=== PATIENT | male | born 1945 | race African-American/Black ===

== ENCOUNTER 2024-02-01 13:20 | Observation (INO) | payer OTHER, SELFPAY ==
[2024-02-01] VITALS (8 sets, daily range): BP systolic 113–142; BP diastolic 70–89; BMI 21.9
--- NOTE | 2024-02-01 09:08 | ED.GENMED ---
History of Present Illness
General
Chief Complaint: Dizziness
Source: patient and family (Son)
Exam Limitations: none
Time Seen by Provider: 02/01/24 08:52
Nursing documentation reviewed up to this point in time: agreed with
Travel History
Have you had any contact with someone who has COVID-19?: No
Do you have any symptoms of coronavirus? Fever > 100 degrees, chills, cough, shortness of breath, sore throat, loss of taste or smell, muscle aches, or headache?: No
History of Present Illness
History of Present Illness:
78-year-old male with a past medical history of hypertension, hyperlipidemia, GERD who presents to the emergency room with his son for evaluation of dizziness, nausea, vomiting; also requesting evaluation after a fall that resulted from his
dizziness yesterday. Patient reports onset of symptoms rather abruptly at around 12 PM yesterday while he was cooking in the kitchen. He says he began to feel a dizzy feeling�he describes room spinning sensation. He says that he thought that he
should sit down but unfortunately lost his balance and fell backwards onto his bottom and hit the back of his head on the ground. He says he did not lose consciousness was able to get up on his own. He says that he went to lay down but did not
feel any better and has had consistent dizziness since then. This morning he woke up and had nausea and some vomiting. He has noticed a discomfort in the epigastric region�he describes this as 'pain from my hiatal hernia.' He says he had some
loose stools this morning. He denies any headache. Denies any neck pain. Denies any back pain. He denies any pain in his extremities. Denies any shortness of breath. He denies having had similar symptoms in the past. He is not on blood
thinners.
Review of Systems
Review of Systems
All Other Systems: ROS reviewed and negative except as documented in HPI and ROS
Constitutional: Reports fatigue; Denies fever or chills
Respiratory: Denies cough or trouble breathing
Cardiac: Denies chest pain or palpitations
ABD/GI: Reports abdominal pain, nausea, vomiting and diarrhea
: Denies flank pain
Musculoskeletal: Denies neck pain or back pain
Neurological: Reports dizzy; Denies headache, weakness or numbness
Phy Exam
Physical Exam
Physical Exam:
General: Awake, alert, oriented x3; no acute distress
Head: Normocephalic, minor occipital scalp hematoma
Eyes: Conjunctiva normal, EOMI without nystagmus, pupils equal round and reactive to light bilaterally
Throat: Airway intact, handling secretions
Neck: Trachea midline, no cervical spine tenderness
Back: No signs of trauma to the back or flank, no tenderness of the thoracic or lumbar spine
Lungs: Clear to auscultation bilaterally, no wheezing, rales, rhonchi
Heart: Regular rate and rhythm, no murmurs, gallops, or rubs
Abd: Soft, non distended, nontender with no palpable masses
Neuro: Cranial nerves intact 2 through 12, speech fluent no dysarthria or aphasia, no limb ataxia, motor and sensory function is intact and symmetric upper and lower extremities
Skin: no rash, no lacerations or abrasions
Extremities: Atraumatic, no edema in extremities, equal pulses in all extremities
Scores
Heart Failure Risk
Heart Failure Risk Score: Not Applicable
Heart Score for Chest Pain Patients
STEMI patient?: Not applicable
Withdrawal Assessment of Alcohol
Withdrawal Assessment Completed?: Not applicable
Course
Orders/Labs/Results
Orders:
Orders
02/01/24 08:53
CT Cervical Spine W/o Iv Contr Urgent
Comment:
Reason For Exam: fall with occipital headstrike, N/V and dizziness
CT Head W/o Iv Contrast Urgent
Comment:
Reason For Exam: fall with occipital headstrike, N/V and dizziness
02/01/24 08:54
Electrocardiogram (*1) Urgent
Reason for Study: Vertigo / Dizzy
EKG- Treatment ONCE
02/01/24 09:16
Complete Blood Count/With Diff Urgent
Comprehensive Metabolic Panel Urgent
02/01/24 09:58
Add On- LAB Urgent
Tests Added?: troponin
02/01/24 10:01
Troponin I Urgent
Comment: PLEASE DRAW, CANNOT ADD ON
02/01/24 10:17
CR Chest - 2 Views Urgent
Comment:
Reason For Exam: epigastric pain
02/01/24 10:18
NEUROLOGY CONSULT Urgent
Consulting Provider: Tye Chin
Was physician already notified: Yes
Abnormal Lab Results
02/01/24
09:16
MCV 79.1 L fL
(80.0-94.0)
RDW 14.7 H %
(11.5-14.5)
Plt Count 436 H 10^3/uL
(130-400)
Absolute Neuts (auto) 7.0 H 10^3/uL
(1.4-6.5)
Lymphocytes % 18.9 L %
(20.5-51.1)
Sodium 134 L mmol/L
(135-145)
Glucose 116 H mg/dl
(70-99)
Alkaline Phosphatase 158 H U/L
(38-126)
02/01/24 09:16
02/01/24 09:16
Vital Signs
Initial and Last Documented VS:
Initial Vital Signs
Temp Pulse Resp BP Pulse Ox
36.5 C 80 20 131/80 99
02/01/24 08:28 02/01/24 08:28 02/01/24 08:28 02/01/24 08:28 02/01/24 08:28
Last Documented Vital Signs
Temp Pulse Resp BP Pulse Ox
36.5 C 74 16 138/79 98
02/01/24 08:28 02/01/24 09:36 02/01/24 09:36 02/01/24 09:36 02/01/24 09:36
MDM/Problems Addressed
Differential Diagnosis Includes:
Dizziness: Describes what sounds like vertigo�differential would include BPPV, stroke, brain mass, hemorrhage; dizziness could also be related to anemia, dysrhythmia, electrolyte derangement, dehydration
Nausea/vomiting/diarrhea/epigastric discomfort: Gastritis, enteritis, pancreatitis, anginal equivalent somewhat less likely
MDM/Problems Addressed:
78-year-old male presents to the emergency room for evaluation of dizziness resulting in a fall with posterior head strike yesterday; today having nausea, vomiting, loose stools and epigastric discomfort as well has dizziness. Fortunately his vital
signs are normal here. Physical exam as above. Plan to place an IV check labs including a CBC and a CMP, troponin, lipase. Will check EKG. Check CT head and cervical spine. Will provide some Zofran and fluids. Monitor closely reassess after
the above.
Labs reviewed: CBC shows no anemia or other clinically significant abnormalities. CMP within acceptable range. CT head negative for any acute pathology. CT cervical spine negative for any fracture but unfortunately the upper part of his lung
field revealed 4 cm mass suspicious for malignancy. Continues to have dizziness without reproducible nystagmus. Two concerns at this point would potentially be a cerebellar stroke given his vascular risk factors; would also be concern for
potentially occult mass given this newly discovered malignancy. Discussed with neurology for consultation. Will plan for admission for continued workup and consideration for MRI. Discussed with hospitalist for admission.
Chronic conditions affecting care:
History of hypertension, hyperlipidemia�higher risk for stroke
*Radiology
Radiology exam reviewed: preliminary read by ED provider and radiology read reviewed
*Pulse Oximetry
Patient hypoxic: no
*EKG
Interpreted by ED Provider?: Yes
Comparison EKG: no comparison EKG present
Heart Rate: 76
Rate: normal
Rhythm: sinus
[place]: left axis deviation
Interval: normal interval
QRS Pattern: normal QRS
Ischemia: non-specific ST changes
*Critical Care Note
Total Time (30-74mins, 75-104mins- exclusive of procedures): Not Applicable
Data Reviewed
Source: patient and family
Patient Management
Discussion with other providers: Hospitalist (Discussed with hospitalist), Paint[employer] Dent Repair Technician (Discussed with neurology) and Radiologist (Discussed with radiology)
Escalation/DeEscalation of care consider admission/obs:
Admission indicated
ED Attending Note
-
Portions of this chart may have been created with voice recognition software.� Occasional wrong word or��sound alike� substitutions may have occurred due to the inherent limitations of voice recognition software.
Discharge Plan
Departure
Admit to doctor: Jake
Presentation/result/management discussed w/ accepting MD/DO: Hospitalist
Discharge Problem:
Dizziness, Lung mass
Referrals:
PRIVATE,PHYSICIAN [Family Provider] -
Interventions
Interventions:
*Risk Screen - Suicide Last Done: 02/01/24 09:25
*General Assessment Last Done: 02/01/24 09:25
*Neglect/Abuse Screening Last Done: 02/01/24 09:25
ED- Fall Risk Assessment Last Done: 02/01/24 09:25
*ED COVID-19 Vaccine History Last Done: 02/01/24 08:28
ED- Neurological Assessment Last Done: 02/01/24 09:25
ED Swallowing Screen Last Done: 02/01/24 09:25
Discharge Date and Time
Print Language: VINCENTIAN
[2024-02-01 09:43] LABS: % Basophils 0.4 % (0-2); % Immature Granulocytes 0.4 % (0-0.5); % Lymphocytes 18.9 % (20.5-51.1); % Monocytes 5.1 % (1.7-9.3); % Neutrophils 74.2 % (42.2-75.2); Absolute Eosinophils 0.1 10^3/uL (0-0.7); Absolute Lymphocytes 1.8 10^3/uL (1.2-3.4); Absolute Monocytes 0.5 10^3/uL (0.1-0.6); Hematocrit 40.2 % (39.0-52.0); Hemoglobin 13.8 g/dL (13.0-18.0); Mean Corp Hgb Conc. 34.3 g/dL (33.0-37.0); Mean Corpuscular Hgb 27.2 pg (27.0-31.0); Mean Corpuscular Volume 79.1 fL (80.0-94.0); Mean Platelet Volume 8.7 fL (7.4-10.4); Nucleated Red Blood Cells % 0 % (-); Platelet Count 436 10^3/uL (130-400); Red Blood Cell Count 5.08 10^6/uL (4.70-6.10); Red Cell Dist. Width 14.7 % (11.5-14.5); White Blood Cell Count 9.4 10^3/uL (4.8-10.8)
[2024-02-01 10:02] LABS: ALT (SGPT) 18 U/L (0-50); AST (SGOT) 25 U/L (17-59); Albumin 4.3 g/dl (3.5-5.0); Alkaline Phosphatase 158 U/L (38-126); Blood Urea Nitrogen 13 mg/dl (9-20); Calcium 9.8 mg/dl (8.4-10.2); Carbon Dioxide 27 mmol/L (22-30); Chloride 101 mmol/L (98-107); Glucose 116 mg/dl (70-99); Potassium 4.2 mmol/L (3.5-5.1); Sodium 134 mmol/L (135-145); Total Bilirubin 0.6 mg/dl (0.2-1.3); eGFR > 60.00
[2024-02-01 10:54] LABS: Troponin I 0.019 ng/ml
--- NOTE | 2024-02-01 12:24 | HPS.HSE ---
Addendum entered and electronically signed by Edgard Escobedo MD 02/01/24 15:17:
see update note addendum
Original Note:
Family Physician
-
Family Physician: PHYSICIAN PRIVATE
Chief Complaint
-
Dizziness, nausea, vomiting, fall, unintentional weight loss
History of Present Illness
78-year-old male complaining of dizziness that started abruptly yesterday at 12 PM while cooking in the kitchen. He had episode of dizziness nausea and vomiting after a fall from his dizziness yesterday. He reports he lost his balance while trying
to sit down fell onto his buttocks and hit the back of his head. He denies any loss of consciousness. His son brought him to the ER today complaining of nausea and vomiting with some discomfort in his epigastric area. He states he did not get a
chance to take his morning Prilosec. He also reports weight loss of 15 pounds over the past year and started adding Ensure twice a day vanilla flavored. He denies fever, chills, chest pain, palpitations, shortness of breath, cough, diarrhea,
urinary symptoms. He has past medical history of vertigo age 50s did outpatient therapy GERD, hiatal hernia, HTN, HLD, active smoker/marijuana use.
Medical History
Past Medical History
Past Medical History: Reports Other
Additional Past Medical History:
vertigo age 50s did outpatient therapy
GERD
hiatal hernia
HTN
HLD
active smoker/marijuana use.
Past Surgical History: Reports None
Social History
Tobacco: Smoker (2 marijuana joints x 50 years in addition to on average 1/2 pack a day cigarettes 50 years)
Alcohol: None
Drug: None
Personal: Single
Living: Alone
Employment: Retired ([employer])
Family History
Family History: Other (Mother age 79 unsure, father age 89 natural causes)
Allergies / Home Medications
Allergies reflects when Allergies were last updated in [employer].
Home Medications with original date entered in [employer]
Allergy/Medication List:
Allergies
Allergy/AdvReac Type Severity Reaction Status Date / Time
Penicillins Allergy Unknown Verified 02/01/24 08:29
Home Medications
amlodipine 10 mg tablet (Norvasc) 10 mg PO DAILY Blood Pressure 02/01/24
atorvastatin 80 mg tablet (Lipitor) 40 mg PO HS High Cholesterol 02/01/24
omeprazole 20 mg tablet,delayed release 20 mg PO BID Gastrointestinal Issue 02/01/24
Review of Systems
-
History Source: Patient and Family (Son at bedside)
A 12 point ROS was completed and negative except as noted: Yes
Constitutional: Reports Weight Loss (15 pounds over the past year); Denies Fever, Fatigue or Chills
EENT: Reports Other (Posterior head slight scalp tenderness with minimal contusion); Denies Sore Throat or Runny Nose
Respiratory: Denies Cough, Hemoptysis or Trouble Breathing
Cardiac: Reports Syncope and Other; Denies Chest Pain, Diaphoresis or Palpitations
Abdomen/GI: Reports Nausea and Vomiting; Denies Abdominal Pain, Diarrhea, Constipated, Bloody Stools, Black Stools or Anorexia
: Denies Dysuria, Frequency, Flank Pain, Incontinence, Difficulty Voiding or Urgency
Musculoskeletal: Denies Joint Pain or Edema
Skin: Denies Itching or Rash
Neurological: Reports Dizzy (Spinning sensation); Denies Headache
Endocrine: Reports No Symptoms
Hematologic/Lymphatic: Reports No Symptoms
Psych: Reports Calm
Physical Exam
Vital Signs
Vital Signs
Temp Pulse Resp BP Pulse Ox
97.7 F 80 16 113/89 100
02/01/24 08:28 02/01/24 11:15 02/01/24 11:15 02/01/24 10:21 02/01/24 11:15
Physical Exam
General: No Apparent Distress, Comfortable and Conversant; No Pain, Fever or Chills
HEENT: NormoCephalic, Anicteric, Moist mucous membranes, PERRLA, [place] Conjunctivae, No Ptosis and Other (EOMs intact)
Respiratory: Clear; No Wheezes, Rales, Rhonchi or Crackles
Cardiac: S1/S2 and Regular Rhythm; No Murmur, Rub, Gallop or Peripheral Edema
Breast: Deferred by me
GI: Soft, Non Tender, Non Distended, Normal Bowel Sounds and No Hepatosplenomegaly
Rectal: Deferred by Provider
Genito-urinary: Deferred by me
Musculoskeletal: Clubbing (All fingernails), No Cyanosis and No Edema
Skin: Warm and Dry; No Rash
Neuro: AO x 3, No Motor Deficits, Nonfocal/grossly intact, Cranial Nerves Intact and No Sensory Deficits; No Slurred Speech, Facial Droop, Tremors or Sedated
Psych: Calm
Laboratory Results
-
02/01/24 09:16
02/01/24 09:16
Laboratory Results
Total Bilirubin 0.6 mg/dl (0.2-1.3) 02/01/24 09:16
AST 25 U/L (17-59) 02/01/24 09:16
ALT 18 U/L (0-50) 02/01/24 09:16
Alkaline Phosphatase 158 U/L (38-126) H 02/01/24 09:16
Troponin I 0.019 ng/ml 02/01/24 10:19
Data Reviewed
-
Diagnostic Radiology: Report Reviewed by me
CT Scan: Report Reviewed by me
Lab Data: Labs Reviewed by me
Impression/Plan
-
Impression/plan:
Observation telemetry
#Acute dizziness concern for CVA/TIA/vertigo
#Hx of vertigo age 50s did outpatient therapy
-Orthostatic vitals
-Consult neurology
-MRI brain with and without contrast
-Check lipid profile, HgbA1c
-Continue Lipitor 40 mg at bedtime
-PT/OT/case management consult
CT head: No acute intracranial abnormalities. Mild changes of cortical atrophy and chronic ischemic disease
CT cervical spine: Severe degenerative changes C3-C7.
EKG: NSR 76 bpm, QTc 450 MS no previous EKGs, flattened T waves anterior lateral leads
#NEW Mass Right upper lobe lung/active smoker concern for malignancy
#History of WT loss 15 pounds unintentional past year patient has been supplementing with Ensure twice a day vanilla
CXR: 4 cm mass right upper lobe worrisome for malignancy
-Check CT chest /abdomen/pelvis with contrast in a.m.
#Mechanical fall with small posterior scalp contusion
Happened 01/31/2024
-Tylenol as needed if any headache
#Active smoker/marijuana use
Has been smoking 2 marijuana joints x 50 years plus approximately half a pack a day on average x 50 years
-Cessation advised
#HTN�benign
113/89
-Continue Norvasc 10 mg daily
#HLD
-Check lipid profile
-Continue Lipitor 40 mg at bedtime
#GERD
#Hiatal hernia
-Continue omeprazole 20 mg twice daily
#PTSD
-No current meds
DVT prophylaxis
SCDs
Full code
[2024-02-01] MEDS: PROTONIX 40 MG PO ×2 (12:52→21:50)
[2024-02-01 13:33] LABS: Troponin I 0.018 ng/ml
--- NOTE | 2024-02-01 13:41 | CON.NEURO4 ---
Consultation - Neurology 4
-
CONSULTING PHYSICIAN: Alphonse Chin
REFERRING PHYSICIAN: ER
DICTATED BY: Alphonse Chin
DATE/TIME OF REQUEST: 02/01/24
DATE/TIME OF CONSULTATION: 02/01/24
Reason for Consultation: Dizziness/vertigo, also a recent finding of right upper lobe mass concerning for lung malignancy
History of Present Illness:
Patient is a 78-year-old man with past medical history of hypertension, hiatal hernia, hyperlipidemia who presents to the hospital with couple episodes of dizziness and vertigo.
Patient reports he was in the kitchen yesterday and that he seemed to have sudden onset of dizziness with then a subsequent fall to the ground without loss of consciousness. Reports he seems to have had a couple episodes of very short lasting
intense vertigo feeling like the room is spinning. He mentioned this to his son who want to get him medical attention for this. He feels a little bit lightheaded when he walks but otherwise has been walking fairly well no double vision or slurred
speech unilateral weakness or paresthesia or unusual headaches. Reports sometime ago he may have had some degree of a balance or vertigo problem for which she was treated with a lot of head repositioning maneuvers. Reports longtime tinnitus.
Patient does report a small amount of hemoptysis recently.
CT head noncontrast in the ER was unremarkable with CT of the cervical spine performed due to fall did find a mass in the right upper lobe of the lung concerning for malignancy which was again seen on chest x-ray/
Past Medical History: Hypertension
Surgical History: Esophageal procedure
Family History: Reviewed and non-contributory
Social History: Retired [employer], lives with and has children, tobacco use and some marijuana use, no alcohol
Allergies: Penicillins
Review of Symptoms:
Patient denies any fever, headache, chest pain, shortness of breath, GI or symptoms.
Physical Exam:
Middle elderly age man no signs of head or neck trauma eyes are clear oropharynx is clear neck with no masses no meningismus heart rate regular breathing unlabored no wheezes abdomen soft nontender no lower extremity edema is seen
Neurologic Examination:
The patient is awake, alert and oriented x 3. (He/She) is able to follow commands and answer questions appropriately. There is no aphasia or dysarthria. On cranial nerve assessment, pupils are 3 mm bilateral, round and reactive to light and
accommodation. Visual mendoza are full. Extraocular movements are intact. Facial sensations are intact and bilaterally symmetrical, there is no facial asymmetry. Hearing is intact bilaterally to normal conversation volume. Tongue palate and uvula
are midline. Sternocleidomastoid strengths are full bilaterally. Motor strengths are 5/5 bilateral upper and lower extremities on medical research [place] scale. There is no drift or involuntary movement noted. Deep tendon reflexes are 2+ bilateral
upper and lower extremities and Babinski is absent bilaterally. Sensations of pain, touch, temperature and vibration are intact and bilaterally symmetrical. There was no extinction noted on double simultaneous stimulation. Coordination is intact by
finger to nose bilaterally. Walks independently in normal fashion, no ataxia, normal base and arm swing and leg movement is symmetric, feels a bit lightheaded but walk appears normal.
Horizontal nystagmus and vertigo elicited with leaning back in bed
Neuro Imaging: CT head non contrast unremarkable
Impressions
1. Short lasting episodes of vertigo along with nystagmus and vertigo elicited with position change on examination today is most suggestive of horizontal or posterior canal benign posterior positional vertigo. However with lung mass on the right
concerning for potential malignancy would bear further workup with examination of posterior fossa on brain MRI.
2. Right lung mass seen on chest X-ray and cervical spine CT along with patient's reports of hemoptysis concerning for lung malignancy
3. Hypertension
4. Hyperlipidemia
Patient has the following risk factors for their symptoms:
IV Tenecteplase/IAT candidacy
Recommendations:
1. Physical therapy with emphasis on vestibular therapy and [place] maneuvers
2. Would check MRI of the brain with and without contrast
3. Check orthostatic vital signs
4. Hold antithrombotics not recommending any antiplatelet at this time
5. Workup for the suspected right lung malignancy
Discussed patient care with: Patient and Dr Palencia
--- NOTE | 2024-02-01 15:02 | W.PN.UPDATE ---
Update Note
Progress Note Update
I saw and examined the patient.
The RELATIONS SPECIALIST Pauly note was reviewed and I agree with the note.
Comment: 78 y/o M hx of HTN, HLD, hiatal hernia presents with sudden onset dizziness and fall to the ground, without LOC. He reports vertigo with intense room spinning sensation. with exertion he feels lightheaded as well. No double vision or
slurred speech or other CVA symptoms. Reports prior hx of vertigo which he received vestibular therapy + also long history of tinnitus.
Incidentally also reports a small amount of hemopytis.
In ER - CT of head unremarkable. CT neck incidentally found RUL Lung mass; confirmed on CXR. Patient is a [facility] smoker.
Physical Exam
General: No Apparent Distress, Comfortable and Conversant; No Pain, Fever or Chills
HEENT: Normocephalic, Anicteric, Moist mucous membranes, PERRLA, [place] Conjunctivae, No Ptosis and Other (EOMs intact)
Respiratory: Clear; No Wheezes, Rales, Rhonchi or Crackles
Cardiac: S1/S2 and Regular Rhythm; No Murmur, Rub, Gallop or Peripheral Edema
Breast: Deferred by me
GI: Soft, Non Tender, Non Distended, Normal Bowel Sounds and No Hepatosplenomegaly
Rectal: Deferred by Provider
Genito-urinary: Deferred by me
Musculoskeletal: Clubbing (All fingernails), No Cyanosis and No Edema
Skin: Warm and Dry; No Rash
Neuro: AO x 3, No Motor Deficits, Nonfocal/grossly intact, Cranial Nerves Intact and No Sensory Deficits; No Slurred Speech, Facial Droop, Tremors or Sedated
Psych: Calm
Assessment:
Acute dizziness concern for CVA/TIA/vertigo
Hx of vertigo age 50s did outpatient therapy
- CT head neg
- Neuro consulted
- follow orthostatics
- follow MRI results
- check lipids/A1c
- continue statin
- PT/OT/Vestibular therapy
Hemoptysis
weight loss, unintentional
Hx of [facility] tobacco abuse/MJ use (Has been smoking 2 marijuana joints x 50 years plus approximately half a pack a day on average x 50 years)
- was taking Ensure BID to help stem weight loss
- will check CT C/A/P in AM to follow up current CT neck/CXR findings of 4cm lung mass, concerning for malignancy
- consult Pulmonary
Mechanical fall with small posterior scalp contusion
- CT head negative
- Tylenol as needed if any headache
Essential HTN
- continue Norvasc
HLD
- check lipid profile
- continue Lipitor 40 mg at bedtime
GERD
Hiatal hernia
- continue omeprazole 20 mg twice daily
PTSD by hx
- No current meds
DVT ppx: SCDs
Code: Full
--- NOTE | 2024-02-01 16:26 | CON.PUL ---
Consultation
Consultation Request
Date/Time Consultation Requested: 02/01/2024
Date/Time Consultation Performed: 02/01/2024
Requesting Provider: Dr. Escobedo
Performing Provider: Dr. Robert Childress
Reason for Consultation: Abnormal chest x-ray/lung mass
Medical History
-
History of Present Illness:
78-year-old man with history of hypertension, hyperlipidemia, hiatal hernia who presented with sudden onset dizziness and a fall without loss of consciousness.
Reports some vertigo sensation. Evaluation in the emergency room including a CT of the head was negative. CT of the neck incidentally found a right upper lobe lung mass.
Patient is a long-term smoker.
No prior images for review.
We were consulted for evaluation of abnormal chest x-ray.
Patient does report some hemoptysis with unintentional weight loss.
He smokes marijuana daily. Is a 50+ pack year history smoker.
Past Medical History
Past Medical History: Other (See assessment and plan section)
Social History
Tobacco: Smoker (50+ pack year history)
Alcohol: None
Drug: None
Employment: Retired
Family History
Family History: Reviewed & Not Pertinent
Allergies / Home Medications
Allergies
Allergy/AdvReac Type Severity Reaction Status Date / Time
Penicillins Allergy Unknown- Verified 02/01/24 12:54
occurred
as an
adolescant
Home Medications
�Medication �Instructions �Recorded �Confirmed �Last Taken �Type
amlodipine 10 mg tablet (Norvasc) 10 mg PO DAILY Blood Pressure 02/01/24 02/01/24 Unknown History
atorvastatin 80 mg tablet (Lipitor) 40 mg PO HS High Cholesterol 02/01/24 02/01/24 Unknown History
omeprazole 20 mg tablet,delayed 20 mg PO BID Gastrointestinal Issue 02/01/24 02/01/24 Unknown History
release
Review of Systems
-
History Source: Patient
All other systems: Negative unless noted
Vitals / Labs / Diagnostic Testing
Vital Signs
Temp Pulse Resp BP Pulse Ox
97.8 F 81 18 121/70 95
02/01/24 15:50 02/01/24 15:50 02/01/24 15:50 02/01/24 15:50 02/01/24 15:50
Lab Data
02/01/24 09:16
02/01/24 09:16
Diagnostic Testing:
Physical Exam
-
HEENT: Normocephalic
Cardiovascular: S1/S2
Respiratory: Clear and Non-Labored Respirations
GI: Soft and Non Distended
Neurology: Awake, Oriented and AO x 3
Skin: Warm
General: Respiratory Distress (n)
Assessment
-
Right upper lobe lung mass identified on lung cuts of CT of the neck. Suggestive of carcinoma
At least 4 cm in diameter
Chest x-ray reviewed. CT of the neck lung cuts reviewed.
Chest x-ray: Suggestive of right upper lobe lung mass
Weight loss/hemoptysis.
Smoker
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
Vertigo: Negative CT head
Brain MRI: Negative
Conditions present prior admission:
GERD
Hiatal hernia
Hypertension
Hyperlipidemia
-
Assessment and plan:
Large right upper lobe lung mass, with weight loss and hemoptysis suggestive of metastatic carcinoma. No prior imaging to review. Chest x-ray and CT of the neck reviewed.
I agree with CT of the chest abdomen and pelvis. Will follow results.
Based on results then we can plan on tissue biopsy approach.
Rule out distant metastatic disease.
-
COPD/emphysema: Not in acute exacerbation.
Patient not on inhalers.
Smoking cessation encouraged
Will need outpatient pulmonary follow-up upon discharge.
--- NOTE | 2024-02-01 19:30 | PTCARENOTE ---
Received pt from ED via stretcher. Pt ambulated to bed independently. AAOx3. No complaints of pain. case monitor placed and reading NSR. Assessed and oriented to room. Pt verbalized understanding of call chisholm. Call chisholm within close reach. Will
continue to monitor.
[2024-02-01] MEDS: LIPITOR 40 MG PO (21:50)
[2024-02-02] VITALS (13 sets, daily range): BP systolic 75–137; BP diastolic 75–91; BMI 21.9
[2024-02-02] MEDS: OMNIPAQUE 50 ML PO (06:17)
[2024-02-02 06:50] LABS: % Basophils 0.6 % (0-2); % Eosinophils 3.5 % (0-6); % Immature Granulocytes 0.5 % (0-0.5); % Lymphocytes 25.5 % (20.5-51.1); % Monocytes 6.7 % (1.7-9.3); % Neutrophils 63.2 % (42.2-75.2); Absolute Basophils 0.1 10^3/uL (0-0.2); Absolute Eosinophils 0.3 10^3/uL (0-0.7); Absolute Lymphocytes 2.1 10^3/uL (1.2-3.4); Absolute Monocytes 0.5 10^3/uL (0.1-0.6); Absolute Neutrophils 5.1 10^3/uL (1.4-6.5); Hematocrit 41.1 % (39.0-52.0); Hemoglobin 13.7 g/dL (13.0-18.0); Mean Corp Hgb Conc. 33.3 g/dL (33.0-37.0); Mean Corpuscular Hgb 26.6 pg (27.0-31.0); Mean Corpuscular Volume 79.8 fL (80.0-94.0); Mean Platelet Volume 8.9 fL (7.4-10.4); Nucleated Red Blood Cells % 0 % (-); Platelet Count 420 10^3/uL (130-400); Red Blood Cell Count 5.15 10^6/uL (4.70-6.10); Red Cell Dist. Width 14.6 % (11.5-14.5)
[2024-02-02 07:18] LABS: Blood Urea Nitrogen 14 mg/dl (9-20); Calcium 9.7 mg/dl (8.4-10.2); Carbon Dioxide 27 mmol/L (22-30); Chloride 101 mmol/L (98-107); Estimated Creatinine Clearance 75 ml/min; Glucose 88 mg/dl (70-99); HDL Cholesterol 42 mg/dl; LDL Cholesterol, Calculated 92 mg/dl; Potassium 4.3 mmol/L (3.5-5.1); Sodium 134 mmol/L (135-145); Total Cholesterol 154 mg/dl (50-199); Triglyceride 100 mg/dl (10-149); Very Low Density Lipoprotein 20 mg/dl (0-30); eGFR > 60.00
[2024-02-02] MEDS: PROTONIX 40 MG PO ×2 (07:44→20:03)
[2024-02-02] MEDS: NORVASC 10 MG PO (07:44)
[2024-02-02 09:23] LABS: Glycohemoglobin (HgbA1c) 6.2 % (4.0-5.6)
--- NOTE | 2024-02-02 09:46 | W.PN.HOSP.TC ---
Today's Communication/Plan
-
follow neuro recs for vertigo management/treatment/vestibular therapy
IR for lung mass biopsy
Assessment / Plan
Assessment / Plan
Assessment:
Acute dizziness likely BPPV
Hx of vertigo age 50s did outpatient therapy
- CT head neg
- MRI negative
- Neuro following
- follow orthostatics
- PT/OT/Vestibular therapy
- prn Meclizine
HLD
- continue statin
Hemoptysis
weight loss, unintentional
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
- was taking Ensure BID to help stem weight loss
- CT C/A/P showed: 3.8 cm solid pulmonary mass in the right upper lobe near the pulmonary apex, most consistent with neoplasm. Nonspecific tiny 2 mm nodule in the lateral left upper lobe in the mid thorax, and subtle 3 mm groundglass subpleural
nodule in the anterolateral right middle lobe. 9 mm right upper lobe bronchial lymph node. 7 mm lower right paratracheal lymph node. Otherwise, no enlarged hilar or mediastinal adenopathy or mass. No anatomic evidence to suggest distant metastatic
disease.
- Pulmonary following
- consult IR For tissue biopsy
Mechanical fall with small posterior scalp contusion
- CT head negative
- Tylenol as needed if any headache
Essential HTN
- continue Norvasc
HLD
- LDL 92
- continue Lipitor 40 mg at bedtime
GERD
Hiatal hernia
- continue omeprazole 20 mg twice daily
PTSD by hx (he served in [employer])
- No current meds
DVT ppx: SCDs
Code: Full
Anticipated Discharge: 24 - 48 hours
Subjective/Interval History
-
Date of Service: February 02, 2024
dizziness slightly improved; [employer]ALL [employer] workup negative
he worked with PT today for vestibular therapy
Objective Data
-
Labs:
Laboratory Results
02/02/24
06:18
WBC 8.0
Hgb 13.7
Hct 41.1
Plt Count 420 H
Sodium 134 L
Potassium 4.3
Chloride 101
Carbon Dioxide 27
BUN 14
Creatinine 0.8
Glucose 88
Calcium 9.7
Vital Signs:
Vital Signs
Temp Pulse Resp BP Pulse Ox
98.1 F 75 16 137/83 98
02/02/24 07:34 02/02/24 07:44 02/02/24 07:34 02/02/24 07:44 02/02/24 07:34
I&O
02/01/24 02/02/24 02/03/24
06:59 06:59 06:59
Intake Total 240 / 240
Balance 240 / 240
Physical Exam
-
General: No Apparent Distress
HEENT: Normocephalic and Atraumatic
Respiratory: Negative Wheezes
Cardiac: Regular Rhythm and S1/S2
GI: Soft
Genito-urinary: No Costovertebral Tender
Musculoskeletal: No Edema
Neuro: AO x 3
Psych: Calm
Data Reviewed
-
Total Time Spent with Patient (in minutes): 42
Labs: Labs Reviewed by me
--- NOTE | 2024-02-02 10:15 | PTCARENOTE ---
Per hospitalist and neurologist, pt does not need NIHSS.
[2024-02-02 10:46] LABS: Hepatitis C Antibody Negative (Negative)
--- NOTE | 2024-02-02 11:06 | W.PN.NEURO.1 ---
Addendum entered and electronically signed by Tye Chin MD 02/02/24 11:38:
I saw and evaluated the patient I reviewed the note by Hodan Nazario:
Please note there is an error below in the note by Hodan Nazario, wrong report put in for brain MRI, there is no hemorrhage on any brain imaging for this patient.
78-year-old male with a past ministry of hypertension hyperlipidemia who presented to hospital with episode of dizziness then leading to a fall has had a couple episodes of short lasting intense vertigo with room spinning sensation. He is also
describes some hemoptysis and had finding on the CT of the cervical spine of a suspicious mass in the right lung suspicious for malignancy.
For me patient had episode of vertigo and spontaneous nystagmus when he was laying back into the left while in the ED highly suspicious is more positional vertigo of the left horizontal or posterior semicircular canal.
MRI of the brain was obtained given findings concerning for new malignancy on the long to perform more thorough workup in case he had BPPV due to more serious causes.
Patient is feeling a bit improved he did work with physical therapy.
Neurologic examination at this point unremarkable
Brain MRI images and report reviewed
-No acute infarct or abnormalities in the posterior fossa parenchyma of the cerebellum
-Bilateral type II anterior inferior cerebellar artery vascular loop within the internal auditory canals are asymptomatic
-Asymptomatic mild extrinsic compression of the medulla by the right vertebral artery
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 I feel that the
vascular loop seen on the brain MRI are in anatomic variant with no relation to his presenting symptoms and is felt that these are asymptomatic anatomic variants.
Recommendations
-Provided printout and education for Loly maneuver to be performed 1-2 times a day for the next week
-No indication for chronic antiplatelet therapy
-Workup per primary team for the suspected right lung malignancy
Original Note:
Today's Communication / Plan
-
.
Neuro Assessment/Plan
Assessment
Patient is a 78-year-old man with past medical history of HLN, HLD, hiatal hernia who presents to the hospital with couple episodes of dizziness and vertigo.
-MRI brain 02/01/24: There is acute intracranial hemorrhage as described. There is also extension of hemorrhage into the right lateral ventricle. Given the location, this is most likely on the basis of hypertension.
-CT Chest/abd/pelvis 02/02/24: 3.8 cm solid pulmonary mass in the right upper lobe near the pulmonary apex, most consistent with neoplasm. Nonspecific tiny 2 mm nodule in the lateral left upper lobe in the mid thorax, and subtle 3 mm groundglass
subpleural nodule in the anterolateral right middle lobe. 9 mm right upper lobe bronchial lymph node. 7 mm lower right paratracheal lymph node. Otherwise, no enlarged hilar or mediastinal adenopathy or mass. No anatomic evidence to suggest distant
metastatic disease. Emphysematous lung changes. Incidental peripheral renal cortical scarring, as well has multiple small bilateral renal cysts, some which are too small to fully characterize. Some of these appear to be slightly increased in
attenuation, likely proteinaceous or hemorrhagic. Consider follow-up in 6 months. Minor sigmoid diverticulosis. No evidence of acute diverticulitis. Underdistended urinary bladder, with mild bladder wall thickening noted.
I. Left-sided BPPV.
II. Newly discovered lung neoplasm.
III. MRI brain negative for stroke and metastasis.
Plan
-Continue left-sided self-loly maneuver 2-3x per day until symptoms resolve. Provided instructions.
-PT evaluations, continued outpatient vestibular therapy.
-Check orthostatic vital signs
-DVT prophylaxis.
-Will sign off, please contact our Neurology service with any questions/concerns.
Subjective/Objective
Subjective Data
Date of Service: February 02, 2024
Patient reports one brief episode of dizziness lasting only seconds while laying in bed this morning, and then physical therapy reports +nystagmus and dizziness with left-sided [place]-Hallpike maneuver mid morning. Otherwise, patient reports feeling
good. He denies any headache, dizziness, speech/swallow difficulty, numbness, weakness, chest pain, palpitations, and shortness of breath.
Objective Data
Vital Signs
Temp Pulse Resp BP Pulse Ox
98.1 F 75 16 137/83 98
02/02/24 07:34 02/02/24 07:44 02/02/24 07:34 02/02/24 07:44 02/02/24 07:34
Lab Results
02/02/24 06:18
02/02/24 06:18
Sodium 134 mmol/L (135-145) L 02/02/24 06:18
Potassium 4.3 mmol/L (3.5-5.1) 02/02/24 06:18
BUN 14 mg/dl (9-20) 02/02/24 06:18
Glucose 88 mg/dl (70-99) 02/02/24 06:18
Calcium 9.7 mg/dl (8.4-10.2) 02/02/24 06:18
LDL Cholesterol, Calc 92 mg/dl 02/02/24 06:18
Patient Allergies
Penicillins Allergy (Verified 02/01/24 12:54)
Unknown- occurred as an adolescant
Review of Systems
-
History Source: Patient
EENT: Negative Blurry Vision, Decreased Vision or Swallowing Difficulty
Respiratory: Cough; Negative Trouble Breathing
Cardiac: Negative Chest Pain or Palpitations
Abdomen/GI: Negative Vomiting
Neuro: Dizzy; Negative Headache, Weakness, Numbness, Ataxia or Speech Problem
Physical Exam
-
General: Well Developed, Well Nourished and No Apparent Distress
Eyes: No Ptosis and PERRLA
HEENT: Normocephalic and Atraumatic
Neck: Full Range of Motion
Respiratory: No Dyspnea
GI: Non-distended
Extremities: No Clubbing, No Cyanosis and No Edema
Psych: Unremarkable
Extended Neurological Exam
Mood & Affect: Mood Unremarkable and Affect Unremarkable
Attention Span & Concentration: Awake, Alert, Interactive and No Difficulty with 2 Step Request
Memory: Unremarkable (AAOx3) and Able to Recall
Tremor: Hand Tremor Absent and Head Tremor Absent
Involuntary Movement: None
Speech: Quality Unremarkable, Quantity Unremarkable and Rate of Production Unremarkable
Cranial Nerve II: Left Eye: Pupillary Reactivity Unremarkable, Pupillary Size Unremarkable and Visual Singh Intact
Cranial Nerve II: Right Eye: Pupillary Reactivity Unremarkable, Pupillary Size Unremarkable and Visual Singh Intact
Cranial Nerves III, IV, : Extraocular Movement: Extraocular Movement Full in all Directions and Other (no nystagmus noted)
Cranial Nerve V: Facial Sensation: Intact to Light Touch
Cranial Nerve VII: Facial Symmetry: Normal Facial Symmetry
Cranial Nerve VIII: Hearing: Unremarkable Hearing to Normal Conversational Volume
Cranial Nerves IX, X: Palate Movement: Palate Elevation Symmetric
Cranial Nerve XI: Shoulder Shrug: Unremarkable
Cranial Nerve XII: Tongue Protusion: Midline
Muscle Strength, Overall: Full Throughout
Muscle Bulk & Tone: Bulk Unremarkable and Tone Unremarkable
Pronator Drift: No Drift in Upper Extremities and No Drift in Lower Extremities
Touch Sensation: Double Simultaneous Stimulation Unremarkable
Coordination: Ptdftl-kmwo-fch[place] Testing Unremarkable
Gait & Station: Up from Seated Without Problem
Data Reviewed
-
CT Head: Report Reviewed and Image Reviewed
CT Cervical Spine: Report Reviewed and Image Reviewed
MRI Head: Report Reviewed and Image Reviewed
Labs: Report Reviewed
Reviewed with: Physician, Patient and Family
Medications
-
Active Medications
Generic Name Dose Route Start Last Admin
Trade Name Freq PRN Reason Stop Dose Admin
Acetaminophen 650 mg 02/01/24 15:36
Acetaminophen 325 Mg Tablet PO 02/29/24 15:35
Q4HPRN PRN
mild pain/MELÉNDEZ/temp> 100.4F
Amlodipine Besylate 10 mg 02/02/24 08:00 02/02/24 07:44
Amlodipine 10 Mg Tablet PO 03/01/24 07:59 10 mg
DAILY YOU Administration
Atorvastatin Calcium 40 mg 02/01/24 22:00 02/01/24 21:50
Atorvastatin (Lipitor) 40 Mg Tablet PO 02/29/24 21:59 40 mg
HS YOU Administration
Meclizine HCl 25 mg 02/02/24 10:44
Meclizine 25 Mg Tablet PO 03/01/24 10:43
Q8HPRN PRN
vertigo/dizziness
Pantoprazole Sodium 40 mg 02/01/24 20:00 02/02/24 07:44
Pantoprazole 40 Mg Delayed Release Tablet PO 02/29/24 19:59 40 mg
BID YOU Administration
Sodium Chloride 0 flush 02/01/24 16:00
Sodium Chloride 0.9% (Flush) Syringe IV 02/29/24 15:59
PER PROTOCOL YOU
Home Medications
�Medication �Instructions �Recorded
amlodipine 10 mg tablet (Norvasc) 10 mg PO DAILY Blood Pressure 02/01/24
atorvastatin 80 mg tablet (Lipitor) 40 mg PO HS High Cholesterol 02/01/24
omeprazole 20 mg tablet,delayed 20 mg PO BID Gastrointestinal Issue 02/01/24
release
[2024-02-02 12:14] LABS: INR 1.09; PT 14.1 Sec (11.4-14.6)
--- NOTE | 2024-02-02 13:51 | W.PN.PUL3 ---
Today's Communication / Plan
-
IR lung bx today.
Pt to follow up at [facility] for further care post DC
Assessment
-
Right upper lobe lung mass identified on lung cuts of CT of the neck. Suggestive of carcinoma
At least 4 cm in diameter
Chest x-ray reviewed. CT of the neck lung cuts reviewed.
Chest x-ray: Suggestive of right upper lobe lung mass
Weight loss/hemoptysis.
Smoker
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
Vertigo: Negative CT head
Brain MRI: Negative
Conditions present prior admission:
GERD
Hiatal hernia
Hypertension
Hyperlipidemia
-
Assessment and plan:
Large right upper lobe lung mass, with weight loss and hemoptysis suggestive of metastatic carcinoma. No prior imaging to review. Chest x-ray and CT of the neck reviewed.
CT chest/abdomen/ Pelvis : reivewed
3.8 cm solid pulmonary mass in the right upper lobe near the pulmonary apex, most consistent with neoplasm.
Nonspecific tiny 2 mm nodule in the lateral left upper lobe in the mid thorax, and subtle 3 mm groundglass subpleural nodule in the anterolateral right middle lobe..
9 mm right upper lobe bronchial lymph node. 7 mm lower right paratracheal lymph node. Otherwise, no enlarged hilar or mediastinal adenopathy or mass.
No anatomic evidence to suggest distant metastatic disease.
-
Discussed with primary team, will proceed with IR bx
Will need outpatient PET CT and PFT.
Eventual oncology and possible Thoracic surgery evaluation.
Pt was offered local follow up to arrange further care but he prefers to follow up at the [facility].
Pt understand possibility of Lung CA and risk of spreading without prompt follow up.
-
COPD/emphysema: Not in acute exacerbation.
Patient not on inhalers.
Smoking cessation encouraged
-\\
No additional recommendations from the pulmonary perspective.
will remain available in the case patient changes his mind regarding local follow up.
Sign off.
Subjective Data
-
Date of Service:
Date of Service: February 02, 2024
Chief Complaint: Pulmonary Follow Up (Lung mass)
Subjective:
No New pulmonary complaints.
Review of Systems
General: Fever (n)
Cardiopulmonary: Dyspnea (none at rest)
GI: Abdominal Pain (n) and Nausea (n)
Neuro: Headache (n)
Objective Data
Data Reviewed
Vital Signs / I&O / Oxygen:
Vital Signs
Temp Pulse Resp BP Pulse Ox
98.0 F 83 16 123/79 98
02/02/24 11:12 02/02/24 11:12 02/02/24 11:12 02/02/24 11:12 02/02/24 11:12
Intake and Output
02/01/24 02/02/24 02/03/24
06:59 06:59 06:59
Intake Total 240 / 240
Balance 240 / 240
SaO2 98
Physical Exam
General: Respiratory Distress (n) and Comfortable
HEENT: Normocephalic
Cardiovascular: S1-S2
Respiratory: Clear and Non-Labored Respirations
GI: Soft and Non Distended
Neurology: Awake, Alert and Oriented
Skin: Warm
Labs/Micro/Reports
Lab Data
02/02/24 06:18
02/02/24 06:18
Laboratory Results
02/02/24
11:53
PT 14.1
INR 1.09
--- NOTE | 2024-02-02 16:31 | CM ---
Reviewed chart, attempted to meet with patient but he was in IR. Placed a call to patient's son who answered and was able to provide information for assessment. Patient lives in a two story house with six steps to enter with his son and .
Patient's son described patient as independent with his ADLs and personal care as well as dressing and bathing. He ambulates without device. He can cook, clean, do personal insurance advisor and laundry.
Patient drives and can get to his own appointments and do his own shopping.
He has no DME.
He has never had VN services or been to a SNF.
Patient has a prescription plan and uses [facility] pharmacy in [place] for all of his medications.
Patient's provider is not listed.
Patient's son stated that patient is independent and does not anticipate that he will have any needs at time of discharge. OBS letter reviewed with son.
Plan: Case management will continue to follow and assist with discharge planning. Should be home no needs.
[2024-02-02] MEDS: LIPITOR 40 MG PO (20:03)
[2024-02-03 03:25] VITALS: BP 117/75
[2024-02-03] MEDS: PROTONIX 40 MG PO (07:11)
[2024-02-03] MEDS: NORVASC 10 MG PO (07:11)
[2024-02-03 07:30] VITALS: BP 121/83
--- NOTE | 2024-02-03 09:58 | W.PN.HOSP.TC ---
Today's Communication/Plan
-
dc to home
Assessment / Plan
Assessment / Plan
Assessment:
Acute dizziness likely BPPV
Hx of vertigo age 50s did outpatient therapy
- CT head neg
- MRI negative
- Neuro following
- PT/OT/Vestibular therapy - script given for outpatient
- prn Meclizine
HLD
- continue statin
Hemoptysis
weight loss, unintentional
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
- was taking Ensure BID to help stem weight loss
- CT C/A/P showed: 3.8 cm solid pulmonary mass in the right upper lobe near the pulmonary apex, most consistent with neoplasm. Nonspecific tiny 2 mm nodule in the lateral left upper lobe in the mid thorax, and subtle 3 mm groundglass subpleural
nodule in the anterolateral right middle lobe. 9 mm right upper lobe bronchial lymph node. 7 mm lower right paratracheal lymph node. Otherwise, no enlarged hilar or mediastinal adenopathy or mass. No anatomic evidence to suggest distant metastatic
disease.
- Pulmonary following
- s/p IR guided lung biopsy
- [facility]
- will need PFTs, PET scan for further diagnostics
Mechanical fall with small posterior scalp contusion
- CT head negative
- Tylenol as needed if any headache
Essential HTN
- continue Norvasc
HLD
- LDL 92
- continue Lipitor 40 mg at bedtime
GERD
Hiatal hernia
- continue omeprazole 20 mg twice daily
PTSD by hx (he served in [place])
- No current meds
DVT ppx: SCDs
Code: Full
More than 30 minutes spent in discharge including
Final examination of the patient
Summarizing hospital stay
Instructions for continuing care to all relevant caregivers
Preparation of discharge records, prescriptions, and referral forms
Total time spent (in minutes): 41
Anticipated Discharge: Today
Subjective/Interval History
-
Date of Service: February 03, 2024
no new complaints
Objective Data
-
Vital Signs:
Vital Signs
Temp Pulse Resp BP Pulse Ox
97.7 F 94 16 121/83 98
02/03/24 07:30 02/03/24 07:30 02/03/24 07:30 02/03/24 07:30 02/03/24 07:30
I&O
02/02/24 02/03/24 02/04/24
06:59 06:59 06:59
Intake Total 240 / 240 860 / 860
Balance 240 / 240 860 / 860
Physical Exam
-
General: No Apparent Distress
HEENT: Normocephalic and Atraumatic
Respiratory: Negative Wheezes
Cardiac: Regular Rhythm and S1/S2
GI: Soft and Nontender
Genito-urinary: No Costovertebral Tender
Neuro: AO x 3
Hematologic / Lymphatic: No Lymphadenopathy
Psych: Calm
Data Reviewed
-
Total Time Spent with Patient (in minutes): 41
Labs: Labs Reviewed by me
--- NOTE | 2024-02-03 10:03 | W.DS.TRANS ---
DC Summary - Case Fitter
-
Discharge Instructions:
Discharge Diagnosis/Procedures BPPV vertigo, lung mass s/p 02/01 IRAD needle
biopsy
Diet Low Cholesterol
Activity As tolerated
Bathing Restrictions None
Other Services PT
Instructions:
Stand-Alone Forms:
Changes to Home Medications: No
Discharge Medications:
DC Medications w/original date entered in [facility]
amlodipine 10 mg tablet (Norvasc) 10 mg PO DAILY Blood Pressure 02/01/24
atorvastatin 80 mg tablet (Lipitor) 40 mg PO HS High Cholesterol 02/01/24
omeprazole 20 mg tablet,delayed release 20 mg PO BID Gastrointestinal Issue 02/01/24
meclizine 25 mg tablet 25 mg PO Q8HPRN PRN vertigo/dizziness #20 tabs 02/03/24
Home Medication Changes
Pending Results: No
Total time spent discharging patient (in min): 42
[2024-02-03] MEDS: PREVNAR 20 0.5 ML IM (10:38)
== END 2024-02-03 11:04 | disposition home or self-care (01) ==
LOC: 3 WEST ACU 13:20
PROVIDERS: Clinical Nurse Specialist Family Health; Radiology Vascular & Interventional Radiology; ADMITTING PHYSICIAN Internal Medicine; CONSULT PHYSICIAN Internal Medicine Critical Care Medicine; CONSULT PHYSICIAN Student in an Organized Health Care Education/Training Program; EMERGENCY PHYSICIAN Emergency Medicine
DX: H81.10 Benign paroxysmal vertigo, unspecified ear (principal); R04.2 Hemoptysis; R63.4 Abnormal weight loss; F17.210 Nicotine dependence, cigarettes, uncomplicated; F12.90 Cannabis use, unspecified, uncomplicated; R91.8 Other nonspecific abnormal finding of lung field; R11.2 Nausea with vomiting, unspecified; W01.0XXA Fall on same level from slipping, tripping and stumbling without subsequent striking against object, initial encounter; Y93.89 Activity, other specified; Y92.000 Kitchen of unspecified non-institutional (private) residence as the place of occurrence of the external cause; K44.9 Diaphragmatic hernia without obstruction or gangrene; S00.03XA Contusion of scalp, initial encounter; I10 Essential (primary) hypertension; K21.9 Gastro-esophageal reflux disease without esophagitis; E78.5 Hyperlipidemia, unspecified; M47.812 Spondylosis without myelopathy or radiculopathy, cervical region; F43.10 Post-traumatic stress disorder, unspecified; Z88.0 Allergy status to penicillin; Z23 Encounter for immunization
CPT/HCPCS: 88305; 32408; 70450; 70553; 71045; 71046; 71260; 72125; 74177; 80048; 80053; 80061; 83036; 84484; 85025; 85610; 86803; 88333; 88341; 88342; 90677; 93005; 97112; 97162; 99152; 99153; 99285; A9575; G0009; G0378; Q9967